=== PATIENT | male | born 1945 | race Caucasian/White ===

== ENCOUNTER 2025-03-05 09:45 | Day surgery (SDC) | payer MEDICARE ==
[2025-03-04 10:37] VITALS: BMI 30.7
[2025-03-05] MEDS ORDERED: PHENYLEPHRINE-NS 100 MCG/ML 10 ML SYRINGE ONE (11:55)
[2025-03-05] MEDS ORDERED: Etomidate 40 MG (20 mL) VIAL ONE (11:55)
[2025-03-05] MEDS ORDERED: Lidocaine 1% PF 5 ML VIAL ONE (11:55)
[2025-03-05] MEDS ORDERED: PROPOFOL 200 MG/20 ML VIAL ONE (12:11)
== END 2025-03-05 12:50 | disposition home or self-care (01) ==
LOC: SDC 09:45
PROVIDERS: ATTEND Internal Medicine Cardiovascular Disease
PROC: 5A2204Z Restoration of Cardiac Rhythm, Single (ICD-10-PCS; principal; 2025-03-05)
DX: I48.19 Other persistent atrial fibrillation (principal); I11.0 Hypertensive heart disease with heart failure; I50.42 Chronic combined systolic (congestive) and diastolic (congestive) heart failure; I49.3 Ventricular premature depolarization; I49.5 Sick sinus syndrome; I34.0 Nonrheumatic mitral (valve) insufficiency; I45.10 Unspecified right bundle-branch block; I47.29 Other ventricular tachycardia; E11.9 Type 2 diabetes mellitus without complications; E78.00 Pure hypercholesterolemia, unspecified; Z95.0 Presence of cardiac pacemaker; Z88.0 Allergy status to penicillin; Z79.01 Long term (current) use of anticoagulants; Z79.899 Other long term (current) drug therapy
CPT/HCPCS: 92960; J2704